=== PATIENT | male | born 2000 | race African-American/Black ===

== ENCOUNTER → 2025-04-12 12:41 | Outpatient (CLI) | payer OTHER, SELFPAY ==
--- NOTE | 2025-04-12 12:45 | DI.MRI.S_ITS ---
PROCEDURE: MR ANKLE RT WO CON INDICATIONS: pain TECHNIQUE: Noncontrast sagittal T1 spin echo and T2 fast spin echo with fat saturation, axial proton density fast spin echo and T2 fast spin echo with fat saturation, coronal T1 spin echo and T2 fast spin echo with fat saturation through the ankle/hindfoot. COMPARISON: None. FINDINGS: Image quality: Excellent. Bones and joints: There is no marrow edema. No fracture or dislocation. Tiny plantar and dorsal calcaneal enthesophytes are noted. No osteochondral injuries of talar dome. Small tibiotalar joint effusion, no loose bodies. Medial structures: The posterior tibialis, flexor digitorum longus, and flexor hallucis longus tendons are intact. Small amount of fluid distending flexor tendon sheath at the level of tibiotalar joint extending to the level of talonavicular joint. The posterior tibial neurovascular bundle appears normal within the tarsal tunnel, without extrinsic mass effect. The deltoid ligament and spring ligament are intact. Lateral structures: The anterior talofibular ligament is thickened. The calcaneofibular ligament is also thickened with intrasubstance T2 hyperintense signal. The posterior talofibular ligament is intact. More superiorly, the anterior and posterior tibiofibular ligaments appear intact, as is the intermalleolar ligament. The tibiofibular syndesmosis is normal in width at 2 mm or less. The peroneus tendon is thickened to at the level of lateral malleolus extending to the level of calcaneocuboid joint. The peroneus brevis tendon appears to be attenuated with intrasubstance T2 hyperintense signal at the level of lateral malleolus tip. The sinus tarsi demonstrates normal fatty signal, without edema, fibrosis, or cyst formation. Anterior structures: The tibialis anterior, extensor hallucis longus, and extensor digitorum longus tendons appear intact. The dorsal talonavicular ligament appears intact. Posterior and plantar structures: Achilles tendon is intact. Medial and lateral bands of the plantar fascia are of normal thickness. No abductor digiti quinti muscle atrophy to suggest Garcia neuropathy. IMPRESSION: 1. No marrow edema. No fracture or dislocation. No osteochondral injuries of talar dome. Tiny calcaneal enthesophytes. 2. Low-grade tenosynovitis involving flexor tendons at the level of tibiotalar joint extending to the level of talonavicular joint. 3. Low-grade tendinosis involving peroneus longus tendon at the level of lateral malleolus tip extending to the level of calcaneocuboid joint. Suggestion of focal longitudinal split involving peroneus brevis tendon at the level of lateral malleolus tip. No full-thickness tendon rupture. 4. Low to moderate grade ATFL sprain. Low-grade intrasubstance partial- thickness tear involving calcaneal fibular ligament. No full-thickness ankle ligament rupture. Dictated by: Darrel De Leon M.D. on 04/13/2025 at 9:32 Approved by: Darrel De Leon M.D. on 04/13/2025 at 9:45
== END ==
PROVIDERS: Referring Provider Physician Assistant; Visit Provider Physician Assistant
DX: M65.871 Other synovitis and tenosynovitis, right ankle and foot (principal); S93.491A Sprain of other ligament of right ankle, initial encounter; S93.411A Sprain of calcaneofibular ligament of right ankle, initial encounter; M25.571 Pain in right ankle and joints of right foot
CPT/HCPCS: 73721